=== PATIENT | female | born 1960 | race African-American/Black ===

== ENCOUNTER 2016-06-05 20:50 | Emergency (ER) | payer BC ==
[~2016-06-05 20:50] MED LIST: ASA5GR PO; ASAB PO; ATEN50 PO; CHLORTHALIDONE; CYMBALTA30 PO; ELDERTONIC PO; ENDOCET1 TA1 PO; GLUCOPHAGE1000 MG PO; HUMALOG SC; HYGROTON 25 MG25 MG PO; IMDUR60 PO; ISORDIL10 PO; L40 PO; LANTUS SC; LIPITOR20 PO; LISINOPRIL40 MG PO; LOP100 PO; LORTAB10 PO; METOPROLOL PO; NITROSTAT0.4 MG SL; NORV10 PO; NOVOLOG SC; PAX20 PO; PLAVIX PO; PRAVASTATIN; PRIN20 PO; TENORETIC1 TAB PO; VITAMIN D; ZETIA PO
[2016-06-05 22:59] LABS: ASCORBIC ACID (UR NOT ORDER) NEG (NEG); BILIRUBIN, URINE NEGATIVE (NEG); KETONE, URINE NEGATIVE (NEG); LEUKOCYTE ESTERASE(NOT OR NEG (NEG); WBC (NOT ORDERED) (RFLEX) < 1 (0-5)
[2016-06-05 23:14] LABS: NITRITE (URINE) NEG (NEG)
[2016-06-05 23:17] LABS: BASOPHILS 0.3 %; BASOPHILS ABSOLUTE 0.02 10/3/uL (0.0-0.16); EOSINOPHILS 2.7 %; ER CBC TAT 0 Hrs 07 Mins; HEMATOCRIT 31.5 % (36.0-48.0); HEMOGLOBIN 10.2 g/dL (12.0-16.0); IMMATURE GRANULOCYTES 0.1 %; IMMATURE GRANULOCYTES ABSOLUTE 0.01 10/3/uL (0.0-0.11); LYMPHOCYTES 43.5 %; LYMPHOCYTES ABSOLUTE 3.17 10/3/uL (0.67-4.30); MEAN CORPUS HGB CONC 32.4 g/dL (32.0-36.0); MEAN CORPUSCULAR HEMOGLOB 29.7 pg (26.0-34.0); MEAN CORPUSCULAR VOLUME 91.8 fL (80-100); MEAN PLATELET VOLUME 9.2 fL (9.2-13.0); MONOCYTES 8.4 %; MONOCYTES ABSOLUTE 0.61 10/3/uL (0.21-1.20); NEUTROPHILS ABSOLUTE 3.28 10/3/uL (2.02-8.40); PLATELET COUNT 252 10/3/uL (150-400); RBC DISTRIBUTION WIDTH 14.1 % (12.0-16.0); RED CELL COUNT 3.43 10/6/uL (4.0-5.6); WHITE BLOOD CELLS 7.3 10/3/uL (4.5-10.5)
[2016-06-05 23:18] LABS: MANUAL DIFF NO %
[2016-06-05 23:25] LABS: INTERNATIONAL NORMAL RATI 1.1 UNITS (-); PARTIAL THROMBO TIME 31.5 SEC (22.5-37.2); PROTIME (NOT ORD) 13.8 SEC (12.0-14.5)
[2016-06-05 23:32] LABS: A/G RATIO 0.8 (0.7-1.9); BUN (BLOOD UREA NITROGEN) 17 MG/DL (6-23); CALCIUM, SERUM 8.4 MG/DL (8.5-10.4); CHLORIDE, SERUM 110 MMOL/L (96-112); CO2 (CARBON DIOXIDE) 26 MMOL/L (24-34); CREATININE 0.73 MG/DL (0.55-1.02); GFR AFRICAN AMERICAN 107 ML/MIN (>=60); GFR NON AFRICAN AMERICAN 93 ML/MIN (>=60); GLOBULIN 3.7 G/DL (2.5-4.1); POTASSIUM, SERUM 3.8 MMOL/L (3.5-5.3); SGOT(AST) 11 U/L (5-40); SGPT(ALT) 15 U/L (5-65); SODIUM, SERUM 145 MMOL/L (135-148); TOTAL BILIRUBIN 0.6 MG/DL (0-1.2); TOTAL PROTEIN 6.7 G/DL (6.0-8.5)
[2016-06-05 23:33] LABS: ALKALINE PHOSPHATASE 68 U/L (45-117); GLUCOSE, SERUM 80 MG/DL (60-99)
== END 2016-06-06 02:58 | disposition home or self-care (01) ==
LOC: ER 20:50
PROVIDERS: Nurse Practitioner Acute Care
DX: R10.11 Right upper quadrant pain (principal); F17.200 Nicotine dependence, unspecified, uncomplicated; E11.9 Type 2 diabetes mellitus without complications; K21.9 Gastro-esophageal reflux disease without esophagitis; Z86.73 Personal history of transient ischemic attack (TIA), and cerebral infarction without residual deficits; Z95.5 Presence of coronary angioplasty implant and graft; I10 Essential (primary) hypertension; J44.9 Chronic obstructive pulmonary disease, unspecified; Z79.899 Other long term (current) drug therapy; Z79.84 Long term (current) use of oral hypoglycemic drugs; Z79.4 Long term (current) use of insulin
CPT/HCPCS: 70450; 71010; 74176; 80053; 81001; 83690; 85025; 85610; 85730; 99285